=== PATIENT | male | born 1935 | race Caucasian/White ===

== ENCOUNTER 2021-02-15 06:17 | Day surgery (SDC) | payer MEDICARE ==
[2021-02-15] MEDS ORDERED: Sodium Chloride 0.9% 1,000 ML IV SCH (07:00)
[2021-02-15] MEDS ORDERED: fentaNYL 100 MCG/2 ML SDV ONE (07:17)
[2021-02-15] MEDS ORDERED: Propofol 200 MG/20 ML SDV ONE (07:17)
--- NOTE | 2021-02-15 08:16 | PROC ---
DATE OF PROCEDURE: SURGEON: Shantanu Arredondo MD INDICATIONS: Conrad is an 85-year-old male, who comes in for a screening colonoscopy. The risks and benefits were explained to Conrad. PROCEDURE IN DETAIL: Anesthesia was given by nurse smoking pipe liner. During the procedure, we used 2 cc of Fentanyl 200 mg of propofol. The Olympus 180L scope was used, was placed into the rectum after examination of the rectum with a gloved finger. The examination of the rectum was unremarkable. Small area where the prostate is. The tube was placed into the rectum and advanced under direct vision. It did get to the cecum with minimal difficulty. Upon retraction of the tube, noted no lesions or ulceration. No abnormalities throughout the entire colon except at the cecum, there is a small lesion noted. This was biopsied. I expect it will be a hyperplastic polyp. The entire colon was unremarkable and the tube was removed. The patient tolerated the procedure well. PREOPERATIVE DIAGNOSIS: Screening colonoscopy. POSTOPERATIVE DIAGNOSIS: Small lesion at cecum, otherwise normal colon from cecum to rectum. I will speak with this gentleman once the laboratory analysis is reported. Shantanu Arredondo MD /[id number]
== END 2021-02-15 09:19 | disposition home or self-care (01) ==
LOC: JP.SDS 06:17
PROVIDERS: ATTEND Internal Medicine
DX: Z12.11 Encounter for screening for malignant neoplasm of colon (principal); D12.0 Benign neoplasm of cecum; G47.33 Obstructive sleep apnea (adult) (pediatric); F17.200 Nicotine dependence, unspecified, uncomplicated; I10 Essential (primary) hypertension
CPT/HCPCS: 45380; 88305; J2704; J3010; J7030